=== PATIENT | female | born 1930 | race Caucasian/White ===

== ENCOUNTER 2016-11-02 10:14 | Emergency (ER) | payer OTHER ==
[~2016-11-02] VITALS: Ht 152.4 cm; Wt 54.5 kg
[~2016-11-02 10:14] MED LIST: ALBU18HF IH; APR50 PO; ASP81 PO; ATOR40TA68 PO; AZIT500T5 PO; CLON-379 PO; CLON0.2T5 PO; DILT120C65 PO; GLIM1TAB2 PO; LEVA0.6312 HHN; MED4DP PO; MULT-761 PO; PANT40TA4 PO; POTA8TAB35 PO; RTATR HHN; SER IH
[2016-11-02 10:26] VITALS: Ht 152.4 cm; Wt 54.5 kg
[2016-11-02] MEDS ORDERED: APR50 PO (11:02)
[2016-11-02] MEDS ORDERED: CLON-379 PO (11:02)
[2016-11-02] MEDS ORDERED: GLIM1TAB2 PO (11:03)
[2016-11-02] MEDS ORDERED: POTA8CAP PO (11:03)
[2016-11-02] MEDS ORDERED: ALBU8.5H3 INH (11:03)
[2016-11-02] MEDS ORDERED: ADV25050 INHALATION (11:03)
[2016-11-02] MEDS ORDERED: AMLO5TAB4 PO (11:04)
[2016-11-02] MEDS ORDERED: HYDROCODONE/APAP (5/325) TAB PO ONE (12:00)
--- NOTE | 2016-11-02 14:35 | RADRPT ---
PROCEDURE: CT Lumbar Spine Without Contrast CLINICAL INDICATION: Low back pain TECHNIQUE: Axial images were obtained of the lumbar spine with coronal and sagittal reconstruction s. No intravenous contrast was administered. CTDI 366 mGy, DLP 13 mGy*cm One or more of the following dose reduction techniques were used: Automated exposure control Adjustment of the mA and/or kV according to patient size. Use of iterative reconstruction technique. COMPARISON: None FINDINGS: There is mild right convex curvature of the thoracolumbar spine. Vertebral body heights are preserv ed. There are no acute fractures. There are anterior endplate osteophytes throughout the lumbar sp ine. No aggressive appearing bone lesions are visualized. The paraspinal musculature is unremarkable. T11-T12: Normal disk height. Minimal annular bulge but no central canal or neural foraminal narrowi ng. Mild to moderate right facet arthropathy. T12-L1: Mild loss of disk height. Minimal annular bulge with a small amount of calcification along the peripheral posterior aspect of the disk but no central canal narrowing. Moderate right and mild left neural foramen narrowing. Moderate right facet arthropathy. L1-L2: Mild loss of disk height. Mild annular bulge with a small amount of calcification along the peripheral posterior aspect of the disk. Mild central canal narrowing. Mild bilateral neural fora hay narrowing. L2-L3: Mild loss of disk height more prominent on the left. Broad 2-3 mm annular bulge more promin ent within the left aspect of the disk but no central canal narrowing. Mild to moderate left and mi ld right neural foraminal narrowing. Mild bilateral facet arthropathy. L3-L4: The disk height is preserved. Broad 3 mm annular bulge with a small amount of calcification along the peripheral posterior aspect of the disk. Mild central canal narrowing. Mild bilateral n eural foraminal narrowing. Mild bilateral facet arthropathy. L4-L5: Minimal loss of disk height on the right. About 2 mm anterolisthesis with a broad 2 - 3 mm annular bulge and moderate central canal narrowing. Moderate right and mild to moderate left neural foraminal narrowing. Moderate to severe left greater than right facet arthropathy. L5-S1: Mild loss of disk height. About 4 mm anterolisthesis with a mild annular bulge and right po sterolateral osseous ridging with mild central canal narrowing. Moderate to severe right and modera te left neural foraminal narrowing. Severe right greater than left facet arthropathy. Mild degenerative changes are visualized within the bilateral sacroiliac joints. Within the left kidney, there is a large hypodense mass measuring at least 7.3 cm of low attenuation , likely corresponding with a cyst. There is also a possible 2.5 cm lesion versus a focus of cortic al thickening within the superior pole of the right kidney of slightly increased attenuation. There are several diverticula visualized within the sigmoid colon. RPTAT: EE IMPRESSION: 1. No acute fracture or dislocation. 2. Moderate to severe/severe facet arthropathy at L4-L5 and L5-S1 with grade 1 anterolisthesis and moderate central canal narrowing at L4-L5. Moderate/moderate to severe right neural foraminal narro wing at both levels. 3. Multilevel mild to moderate degenerative disk disease throughout the lumbar spine. 4. Large 7.3 cm left renal cyst. Possible cortically based 2.5 cm indeterminate lesion within the superior pole of the right kidney versus a focus of cortical thickening which a follow-up CT abdomen with and without contrast is recommended for additional evaluation. Results were discussed with Dr. HOLLIDAY at 11/02/2016 2:32:49 PM. .Jacquelin Gomez MD, Date Time Electronically viewed and signed by .Jacquelin Gomez MD, MD on 11/02/2016 14:38 .T/
[2016-11-02] MEDS ORDERED: HYDR-906 PO (14:59)
[2016-11-02] MEDS ORDERED: DOCU-144 PO (14:59)
--- NOTE | 2016-11-02 15:02 | ERD ---
ER Documentation Chief Complaint Date/Time DATE: 11/02/16 TIME: 1044 Chief Complaint Lower back pain X 4 days, no trauma. HPI 85-year-old female presents to the emergency department with her family complaining of low back pain. Patient states that she has had low back pain in the past but this morning she awoke with more severe low back pain. The pain is located in her lumbar spine area. Patient reports no trauma. She reports no fevers, chills, bowel or bladder incontinence. She states the pain became more severe to make it difficult for her to ambulate and she came to the emergency department for evaluation. Patient currently reports the pain is a 10 /10. ROS All systems reviewed and are negative except as per history of present illness. Medications Home Meds Active Scripts Docusate Sodium* (Colace*) 100 Mg Capsule, 100 MG PO BID, #60 CAP Prov:RANJANA HOLLIDAY 11/02/16 Hydrocodone/Acetaminophen (Pierce 5-325 Tablet) 1 Each Tablet, 1 EACH PO TID, # 10 TAB Prov:RANJANA HOLLIDAY 11/02/16 Reported Medications Amlodipine Besylate* (Norvasc*) 5 Mg Tablet, 5 MG PO QHS, TAB 11/02/16 Glimepiride* (Glimepiride*) 1 Mg Tablet, 1 MG PO DAILY, TAB 11/02/16 Salmeterol Xinaf/Fluticasone* (Advair*) 250-50 Diskus Inhaler, 1 INH INHALATION BID, #1 INHALER 11/02/16 Albuterol Sulfate* (Proair HFA*) 8.5 Gm Hfa.aer.ad, 2 PUFF INH Q4H Y for WHEEZING AND SOB, #1 INHALER 11/02/16 Potassium Chloride* (Potassium Chloride*) 8 Meq Capsule.er, 8 MEQ PO BID, CAP 11/02/16 Hydralazine Hcl* (Hydralazine Hcl*) 50 Mg Tab, 50 MG PO Q6H, #60 TAB 11/02/16 Clonidine Hcl* (Clonidine Hcl*) 0.1 Mg Tab, 0.1 MG PO DAILY Y for ELEVATED BLOOD PRESSURE, TAB 11/02/16 Discontinued Reported Medications Clonidine Hcl* (Clonidine Hcl*) 0.2 Mg Tablet, 0.2 MG PO Q8, TAB 05/25/15 Glimepiride* (Glimepiride*) 1 Mg Tablet, 1 MG PO WITH BREAKFAST, TAB 05/25/15 Potassium Chloride* (Klor-Con*) 8 Meq Tablet.sa, 8 MEQ PO DAILY, TAB 05/25/15 Diltiazem Hcl* (Taztia XT*) 120 Mg Capsule.sa, 120 MG PO QHS, CAP 05/25/15 Clonidine Hcl* (Clonidine Hcl*) 0.2 Mg Tablet, 0.2 MG PO Q8, TAB 05/25/15 Clonidine Hcl* (Clonidine Hcl*) 0.1 Mg Tab, 0.1 MG PO QHS, TAB 05/25/15 Hydralazine Hcl* (Hydralazine Hcl*) 50 Mg Tab, 50 MG PO BID, TAB 05/25/15 Multivitamin (MULTI VITAMIN DAILY) 1 Each Tablet, 1 TAB PO DAILY, TAB 05/25/15 Salmeterol Xinafoate* (Serevent Diskus*) 50 Mcg/Disk W/Dev Disk.w.dev, 1 PUFF IH BID, INH 05/25/15 Albuterol Sulfate* (Ventolin HFA*) 18 Gm Hfa.aer.ad, 2 PUFF IH Q4H Y for WHEEZING AND RESP DISTRESS, EA 05/25/15 Discontinued Scripts Atorvastatin* (Atorvastatin*) 40 Mg Tablet, 40 MG PO HS for 30 Days, TAB 3 Refills Prov:MARCIANO XIONG 05/27/15 Levalbuterol* (Xopenex*) 0.63 Mg/3 Ml Nebu, 0.63 MG HHN Q6 Y for SOB,WHEEZING, # 90 3 Refills Prov:MARCIANO XIONG 05/27/15 Ipratropium [place]* (Atrovent*) 0.5 Mg/2.5 Ml Nebu, 0.5 MG HHN Q6 Y for SHORTNESS OF BREATH, #90 3 Refills Prov:MARCIANO XIONG 05/27/15 Methylprednisolone* (Medrol* DOSE PACK) 4 Mg/Dose-Pack Tab.ds.pk, 4 MG PO . DIRECTED, #1 PACKET Prov:MARCIANO XIONG 05/27/15 Azithromycin* (Azithromycin*) 500 Mg Tablet, 500 MG PO DAILY for 5 Days, TAB Prov:MARCIANO XIONG 05/27/15 Aspirin (Aspirin) 81 Mg Chew, 81 MG PO DAILY for 30 Days, 3 Refills Prov:MARCIANO XIONG 05/27/15 Pantoprazole (Protonix) 40 Mg Tabec, 40 MG PO DAILY@06 for 30 Days, 3 Refills Prov:MARCIANO XIONG 05/27/15 Allergies Allergies: Coded Allergies: Penicillins (Verified Allergy, Intermediate, 11/02/16) PMhx/Soc History of Surgery: Yes (CARTARACTS) Anesthesia Reaction: No Hx Neurological Disorder: No Hx Respiratory Disorders: Yes (ASTHMA) Hx Cardiac Disorders: No Hx Psychiatric Problems: No Hx Miscellaneous Medical Probl: No Hx Alcohol Use: No Hx Substance Use: No Hx Tobacco Use: No Smoking Status: Never smoker FmHx Noncontributory for chief complaint Physical Exam Vitals Vital Signs Date Time Temp Pulse Resp B/P Pulse Ox O2 Delivery O2 Flow Rate FiO2 11/02/16 10:26 98.9 104 18 189/81 97 Physical Exam GENERAL: Elderly frail patient in no acute distress. She appears to be mildly uncomfortable. HEENT: Pupils equal, round, and reactive to light. EOMI. There is no scleral icterus. NECK: C-spine is soft and supple, there is no meningismus. There is no cervical lymphadenopathy. LUNGS: Clear to auscultation bilaterally. There are no rales, wheezes or rhonchi. HEART: Regular rate and rhythm, no murmurs, clicks, rubs or gallops. ABDOMEN: Soft, non-tender, non-distended. There are bowel sounds in all four quadrants. No rebound or guarding. EXTREMITIES: There is no peripheral cyanosis or edema. No focal swelling or erythema. Back: No midline spinal tenderness or evidence of significant spasm or infection. NEURO: The patient moves all four extremities with 5/5 strength. Cranial nerves II - XII are intact. Normal gait. Alert and oriented SKIN: There is no apparent rash or petechiae. HEME/LYMPHATIC: There is no evidence of excessive bruising or lymphedema. PSYCHIATRIC: The patient does not appear anxious or depressed. Results 24 hrs Current Medications Medications (Trade) Dose Ordered Sig/Shawn Route PRN Reason Start Time Stop Time Status Last Admin Dose Admin Acetaminophen/ Hydrocodone Bitart (Pierce (5/325)) 1 tab ONCE ONCE PO 11/02/16 12:00 11/02/16 12:01 DC 11/02/16 11:40 Procedures/MDM Patient was taken to a room, seen and evaluated. Comfort measures were initiated. Diagnostic tests were ordered and reviewed. RADIOLOGY: reviewed with the radiologist REEVALUATION: Patient's pain was much improved with the Pierce. She remained neurologically normal MEDICAL DECISION MAKING: This is an 85-year-old female presents the emergency department with back pain. Overall, the evaluation of her pain is still somewhat unclear. She shows no definitive injury or issues based on her CT scan. At this time, the radiologist has requested a follow-up CT scan of her abdomen and pelvis for an incidental finding on her kidney. This is pending. Patient will be passed on to Dr. Louise pending the results of the CT scan. Departure Diagnosis: Primary Impression: Back pain Condition: Stable Patient Instructions: Back Pain (Acute Or Chronic) Referrals: LISA HERNANDEZ MD (PCP) Additional Instructions: Please see your doctor with a copy of your results. You will need to have your CT scans rechecked. Use the pain medication only as needed. Return for any increased pain, any other problems or concerns RANJANA HOLLIDAY Nov 02, 2016 15:02
--- NOTE | 2016-11-02 15:14 | RADRPT ---
PROCEDURE: CT Abdomen and Pelvis without contrast. CLINICAL INDICATION: Abdominal pain and lower back pain. TECHNIQUE: CT scan of the abdomen and pelvis without contrast was performed on a multidetector hig h-resolution CT scanner. The patient was scanned without intravenous contrast. Coronal and sagittal reformatted images were obtained from the axial source images. Images were reviewed on a high-resol [employer] PACS workstation. The total exam CTDI equals 8.59 mGy and the total exam DLP equals 435.06 mGy -cm. One or more of the following dose reduction techniques were used: Automated exposure control. Adjustment of the mA and/or kV according to patient size. Use of iterative reconstruction technique. COMPARISON: CT L-spine 11/02/2016 FINDINGS: CT abdomen: The lung bases are remarkable for mild pleuroparenchymal scarring. The heart size is normal, withou t pericardial thickening or effusion. The liver is normal in size and density without focal mass or intrahepatic biliary dilatation. There is approximately 1 cm cyst in the medial left hepatic lobe. The spleen is normal in size and homogeneous in density. The stomach is partially collapsed, but i s grossly unremarkable. The pancreas as visualized is normal. The gallbladder and biliary tree are unremarkable and there is no evidence for biliary dilatation. The adrenal glands are symmetric and normal. The kidneys are symmetrically unremarkable as well. There is approximately a 7.5 cm parap elvic cyst in the left kidney. There is approximately 2.5 cm partially exophytic mildly complex cys t in the lower pole right kidney. The aorta is of normal caliber. Aortic vascular calcifications are present. There is no retroperit bush lymphadenopathy. The leonila hepatis region is clear. The bowel and mesentery, as visualized, are equally unremarkable. There is moderate stool in the right colon. CT pelvis: The small bowel loops situated within the pelvis are unremarkable. The pelvic organs are normal. T he pelvic sidewalls and inguinal regions are clear. The sigmoid colon and rectum are remarkable for sigmoid diverticulosis. No mass, lymphadenopathy, or free fluid is seen. No acute inflammation is seen. The surrounding osseous structures are remarkable for degenerative spondylosis of the spine. No osteolytic or osteoblastic lesion is detected. IMPRESSION: 1. Mildly complex partially exophytic cyst measures up to 2.5 cm in the lower pole right kidney. Co nsider ultrasound for further evaluation if the patient is not a candidate for IV contrast. Large le ft parapelvic renal cyst. 2. Sigmoid diverticulosis without evidence of acute diverticulitis. 3. Aortoiliac atherosclerosis. RPTAT: BB .Josemanuel Spann MD, MD Date Time Electronically viewed and signed by .Josemanuel Spann MD, on 11/02/2016 15:13 .O/
[2016-11-02 15:29] VITALS: BP 168/77; PULSE 81; RESP 16
== END 2016-11-02 15:31 | disposition home or self-care (01) ==
LOC: E/R 10:14
DX: M54.5 Low back pain (principal); J45.909 Unspecified asthma, uncomplicated; E11.9 Type 2 diabetes mellitus without complications; Z79.84 Long term (current) use of oral hypoglycemic drugs
CPT/HCPCS: 72131; 74176

== ENCOUNTER 2018-01-11 13:52 | Inpatient (IN) | END 2018-01-15 18:55 | DRG 470 ==